=== PATIENT | female | born 1975 | race Hispanic/Latino ===

== ENCOUNTER 2021-10-12 12:59 | Emergency (ER) | payer SELFPAY ==
--- NOTE | ~2021-10-12 | CT_ITS ---
EXAMINATION: CT abdomen pelvis w con DATE: 10/12/2021 16:49 INDICATION: Right flank pain, fever. Recent urinary tract infection. TECHNIQUE: Computed tomography (CT) of the abdomen and pelvis was performed with 100 CC Omnipaque 350 intravenous contrast. Automated exposure control and iterative reconstruction technique were employe d. Exam dose: 462.47 mGy-cm total exam DLP. COMPARISON: None. FINDINGS: The lung bases are clear of infiltrate or consolidation. Normal heart size. No pericardial or pleural effusion. Small sliding hiatal hernia. The gallbladder is present. No bile duct or pancreatic duct dilatation. No hepatic, splenic, pancreatic, and adrenal or renal space-occupying mass lesion is evident. No urinary tract calculus or hydroureteronephrosis. There is moderate diffuse thickening of the urina ry bladder wall; cystitis is not excluded. Normal caliber of the abdominal aorta. No intraperitoneal or retroperitoneal or pelvic mass lesion or adenopathy or ascites. Normal appendix. There is diverticulosis of the left and right colon; no CT evidence of diverticuliti s. No bowel obstruction, bowel wall thickening, pneumatosis or intraperitoneal free air is detected. The uterus and adnexal areas are unremarkable. Small fat-containing umbilical hernia. There is a prominent fat-containing left inguinal hernia. No suspicious osteolytic or osteoblastic lesions are noted. IMPRESSION: Small sliding hiatal hernia Normal appendix Diverticulosis of left and right colon; no evidence of diverticulitis No urinary tract calculus or hydroureteronephrosis Moderate diffuse thickening of the urinary bladder wall; cystitis is not excluded Prominent fat-containing left inguinal hernia Reviewed, dictated and finalized at [facility]. Reviewed, dictated and finalized at [facility]. IMPRESSION: Small sliding hiatal hernia Normal appendix Diverticulosis of left and right colon; no evidence of diverticulitis No urinary tract calculus or hydroureteronephrosis Moderate diffuse thickening of the urinary bladder wall; cystitis is not exclud ed Prominent fat-containing left inguinal hernia
[2021-10-12 13:09] VITALS: BP 125/75; PULSE 127; RESP 16; TEMP 37.5; O2SAT 99
[2021-10-12 13:28] LABS: Basophils Absolute Auto 0.1 K/mm3 (0.0-0.1); Basophils Percent Auto 0.4 % (0.2-1.2); Eosinophils Percent Auto 0.3 % (0-4.4); Hematocrit 40.1 % (37.0-47.0); Hemoglobin 13.4 g/dL (12.0-15.0); Immature Granulocyte Absolute 0.04 K/mm3 (0.00-0.031); Immature Granulocyte Percent A 0.3 % (0-0.5); Lymphocytes Absolute Auto 0.57 K/mm3 (0.9-3.2); Lymphocytes Percent Auto 4.6 % (18.3-44.2); Mean Corpuscular HGB Conc 33.4 g/dl (32-36); Mean Corpuscular Hemoglobin 31.7 pg (26-34); Mean Corpuscular Volume 94.8 fl (80-100); Mean Platelet Volume 10.9 fl (7.4-10.4); Monocytes Absolute Auto 0.5 K/mm3 (0.1-0.6); Monocytes Percent Auto 4.1 % (2.6-8.5); Neutrophils Absolute Auto 11.1 K/mm3 (1.3-6.7); Neutrophils Percent Auto 90.3 % (45.5-73.1); Platelet Count Result 253 k/mm3 (150-375); Red Blood Count 4.23 M/mm3 (4.2-5.4); Red Cell Distribution Width 11.7 % (11.5-14.5); White Blood Count 12.3 K/mm3 (4.5-10.0)
[2021-10-12 13:39] LABS: Alanine Aminotransferase 20 U/L (6-35); Albumin Level 4.5 g/dL (3.5-5.1); Alkaline Phosphatase 89 U/L (38-126); Anion Gap 13 mmol/L (8-16); Aspartate Amino Transferase 27 U/L (14-36); Bilirubin,Total 0.7 mg/dL (0.2-1.3); Blood Urea Nitrogen 7 mg/dL (7-17); Carbon Dioxide 24 mmol/L (22-30); Chloride 99 mmol/L (98-107); Estimated CRCL calculation 74 ml/min; Estimated Glomerular Filt Rate > 60; Glucose 132 mg/dL (65-110); Lipase 53 U/L (23-300); Sodium 136 mmol/L (137-145)
[2021-10-12 13:46] LABS: Bacteria Urine Trace /hpf; Mucus Urine Rare /lpf; WBC Urine 31-50 /hpf
[2021-10-12 14:02] LABS: Appearance Urine Clear (Clear); Bilirubin Urine Negative (Negative); Blood Urine 2+ (Negative); Color Urine Yellow (Yellow); Glucose Urine UA Negative (Negative); Ketones Urine Negative (Negative); Leukocyte Esterase Ur 3+ LEU/UL (Negative); Nitrate Urine Positive (Negative); Protein Urine Negative (Negative); Specific Grav Ur 1.015 (1.001-1.035)
[2021-10-12 14:03] LABS: Add Urine Microscopic? YES
--- NOTE | 2021-10-12 14:40 | ED.ABDPAIN ---
HPI - Abdominal Pain General Chief Complaint: Abdominal Pain Stated Complaint: abd pain Time Seen by Provider: 10/12/21 14:12 History of Present Illness HPI narrative: 46-year-old female who is Indonesian-speaking only presents to the emergency room for unresolved UTI symptoms dysuria and right flank pain. History was obtained using a Indonesian speaking windows server administrator. Patient states 3 days ago she was in [place], and was had a evaluated at a clinic diagnosed with a urinary tract infection. At that time patient was started on Bactrim, Azo, and fluconazole. Returned home and was seen at another clinic earlier this morning for continued symptom Tums. Patient was told to stop taking the Bactrim and was replaced with Macrobid. Patient is reportedly having right flank pain, suprapubic pain and intermittent fevers which are controlled with Tylenol. Related Data Allergies Allergy/AdvReac Type Severity Reaction Status Date / Time No Known Allergies Allergy Verified 10/12/21 13:12 Review of Systems Review of Systems: CONSTITUTIONAL: Reports fever EYES: Denies visual changes, redness, or discharge. ENT: Denies rhinorrhea, congestion, sore throat, or otalgia. CARDIOVASCULAR: Denies chest pain, palpitations, or edema. RESPIRATORY: Denies cough or dyspnea. GASTROINTESTINAL: Denies abdominal pain, nausea, vomiting, or diarrhea. GENITOURINARY: Reports dysuria SKIN: Denies rash or itching. MUSCULOSKELETAL: Denies back pain, joint pain, or myalgia. NEUROLOGIC: Denies headache, numbness, dizziness, or weakness. PSYCHIATRIC: Denies anxiety or depression. Exam Narrative: GENERAL: Well-appearing, well-nourished, no physical limitations, and in no acute distress. HEAD: Normocephalic, atraumatic. EYES: Conjunctivae normal, PERRLA and EOMI. CHEST: Clear to auscultation. No respiratory distress. No wheezes rales or rhonchi. No tenderness. HEART: Regular rate and rhythm. No murmur heard. Normal peripheral pulses. ABDOMEN: Soft, suprapubic tenderness, nondistended, normal active bowel sounds. BACK: Right CVA tenderness EXTREMITIES: Normal range of motion. No edema. No clubbing or cyanosis SKIN: Warm, dry, no rash. No noted wounds NEURO: No focal deficits. Alert and oriented x3. MAEW. CN's II-XI intact bilaterally, normal gait PSYCH: Cooperative. Normal mood and affect. Course Vital Signs Vital signs: Vital Signs Temperature 37.5 C 10/12/21 13:09 Pulse Rate 127 H 10/12/21 13:09 Respiratory Rate 16 10/12/21 13:09 Blood Pressure 125/75 10/12/21 13:09 Pulse Oximetry 99 10/12/21 13:09 Oxygen Delivery Room Air 10/12/21 13:09 Temperature 37.3 C 10/12/21 16:06 Pulse Rate 127 H 10/12/21 13:09 Respiratory Rate 16 10/12/21 13:09 Blood Pressure 125/75 10/12/21 13:09 Pulse Oximetry 99 10/12/21 13:09 Oxygen Delivery Room Air 10/12/21 13:09 MDM - Abdominal Pain Lab Data Result diagrams: 10/12/21 13:18 10/12/21 13:18 Labs: Lab Results 10/12/21 10/12/21 10/12/21 Range/Units 13:18 13:18 13:20 WBC 12.3 H (4.5-10.0) K/mm3 RBC 4.23 (4.2-5.4) M/mm3 Hgb 13.4 (12.0-15.0) g/dL Hct 40.1 (37.0-47.0) % MCV 94.8 (80-100) fl MCH 31.7 (26-34) pg MCHC 33.4 (32-36) g/dl RDW 11.7 (11.5-14.5) % Plt Count 253 (150-375) k/mm3 MPV 10.9 H (7.4-10.4) fl Immature Gran % (Auto) 0.3 (0-0.5) % Neut % (Auto) 90.3 H (45.5-73.1) % Lymph % (Auto) 4.6 L (18.3-44.2) % Moore % (Auto) 4.1 (2.6-8.5) % Eos % (Auto) 0.3 (0-4.4) % Baso % (Auto) 0.4 (0.2-1.2) % Lymph # (Auto) 0.57 L (0.9-3.2) K/mm3 Moore # (Auto) 0.5 (0.1-0.6) K/mm3 Eos # (Auto) 0.0 (0-0.3) K/mm3 Baso # (Auto) 0.1 (0.0-0.1) K/mm3 Abs Immat Gran (auto) 0.04 H (0.00-0.031) K/mm3 Absolute Neuts (auto) 11.1 H (1.3-6.7) K/mm3 Absolute Nucleated RBC 0.0 (0.0-0.012) K/mm3 Nucleated RBC % 0.0 (0.0-0.2) % Sodium 136 L (137-145) mmol/
--- NOTE | 2021-10-12 15:12 | PC.NURSE ---
Called lab to add bedside
[2021-10-12] MEDS: KETOROLAC 30 MG/ML VIAL (*BKC) IV PUSH (15:38)
[2021-10-12] MEDS: SODIUM CHLORIDE 0.9% IV 1,000 ML 999 ML IV CONT (15:38)
[2021-10-12 16:06] VITALS: TEMP 37.3
[2021-10-12 16:15] LABS: Pregnancy On Board Control Positive; Urine Pregnancy Test Negative
== END 2021-10-12 17:52 | disposition home or self-care (01) ==
PROVIDERS: Emergency Medicine; Emergency Provider Nurse Practitioner Family; PCP Physician Assistant
DX: N39.0 Urinary tract infection, site not specified (principal); K44.9 Diaphragmatic hernia without obstruction or gangrene; K57.90 Diverticulosis of intestine, part unspecified, without perforation or abscess without bleeding; K40.90 Unilateral inguinal hernia, without obstruction or gangrene, not specified as recurrent
CPT/HCPCS: 36415; 74177; 80053; 81001; 81025; 83690; 85025; 87077; 87086; 87186; 96361; 96374; 99284; J1885; J7030; Q9967

== ENCOUNTER 2022-03-06 17:12 | Emergency (ER) | payer SELFPAY ==
[2022-03-06 17:18] VITALS: BP 132/86; PULSE 105; RESP 18; TEMP 36.8; O2SAT 100
--- NOTE | 2022-03-06 18:00 | ED.URI ---
HPI - URI/Sore Throat General Chief Complaint: Upper Respiratory Infection Stated Complaint: Sore Throat/ Ears Irritation Time Seen by Provider: 03/06/22 17:40 Source: patient, RN notes reviewed, old records reviewed and chart computer ([employer]ia [employer]) Mode of arrival: ambulatory Limitations: no limitations History of Present Illness HPI Narrative: 47-year-old female presents to the [facility] with multiple complaints. Patient reports ear pain, sore throat and soreness to the lower part of the nares, upper nose. Symptoms started Patient has concerns for diabetes and menopause. Attempted to explain to patient through chart computer that we do not do blood work that she would need to follow up with primary care provider for further evaluation and blood work. Patient states that she has a history of anxiety and is wanting diazepam. Explained to patient through chart computer that we do not prescribed controlled substances. That if she is having anxiety she needs to follow up with primary care provider. Onset (ago): day(s) (3) Related Data Home Medications Medication Instructions Recorded Confirmed clonazepam 0.5 mg tablet (Klonopin) 0.5 mg PO BID 03/06/22 03/06/22 escitalopram oxalate 5 mg tablet 5 mg PO DAILY 03/06/22 03/06/22 (Lexapro) Allergies Allergy/AdvReac Type Severity Reaction Status Date / Time No Known Allergies Allergy Verified 10/12/21 13:12 Review of Systems Review of Systems: All systems reviewed & are unremarkable except as noted in HPI and below Constitutional: Constitutional: Reports no additional constitutional complaints Eyes: Eyes: Reports no additional eye complaints ENT: Reports as per HPI, Reports otalgia and Reports sore throat Cardiovascular: Cardiovascular: Reports no additional cardiovascular complaints, Denies chest pain and Denies dyspnea Respiratory: Respiratory: Reports no additional respiratory complaints, Denies chest congestion, Denies cough and Denies dyspnea Gastrointestinal: Gastrointestinal: Reports no additional gastrointestinal complaints, Denies abdominal pain, Denies nausea and Denies vomiting Musculoskeletal: Musculoskeletal: Reports no additional musculoskeletal complaints Integumentary/Breasts: Skin/Breast: Reports system reviewed and no additional complaints, except as docu Neurologic: Reports system reviewed and no additional complaints, except as documented Psychiatric: Psychiatric: Reports no additional psychiatric complaints Allergic/Immunologic: Allergic/Immunologic: Reports no additional allergic/immunologic complaints PMFSH Past Medical History Medical History (Updated 03/06/22 @ 18:16 by Rahel Storey APRN) Anxiety Comments At the time of my signature, I reviewed and agree with the nursing past medical, surgical, social, and family history. There is no relevant family history pertinent to the patient complaint. Exam Const: General: cooperative, healthy appearing, comfortable, no acute distress, well developed, alert and well nourished Nutritional Appearance: well nourished and obese Orientation/consciousness: patient oriented x3 Limitations: no limitations HENMT: Head: normal to inspection Ears: hearing grossly normal bilaterally, external ears normal and TM abnormal with fluid behind the TM bilateral Face/Nose/Sinus: Normal external nose present, Normal nares present, Normal nasal mucous membranes and turbinates present and normal facial exam Face and sinus: normal facial exam Mouth: Yes Normal oral and palatal mucosa present, Yes lip normal and Yes moist mucous membranes Throat: posterior oropharynx normal, uvula midline and postnasal drainage Eyes: General: appearance normal, both eyes and all related structures Alignment and Position: alignment normal Periorbital: periorbital findings normal Conjunctivae: conjunctivae normal Pupils: Equal, round and reactive pupils present EOM: EOMs intact bilaterally Neck: Neck: normal visual
== END 2022-03-06 18:21 | disposition home or self-care (01) ==
PROVIDERS: Emergency Provider Nurse Practitioner; PCP Physician Assistant
DX: R09.82 Postnasal drip (principal); J06.9 Acute upper respiratory infection, unspecified; Z20.822 Contact with and (suspected) exposure to COVID-19; F41.9 Anxiety disorder, unspecified
CPT/HCPCS: 87426; 87804; 99213; C9803; G0463

== ENCOUNTER 2022-04-02 11:29 | Emergency (ER) | payer MEDICAID, SELFPAY ==
[2022-04-02 11:41] VITALS: BP 118/67; PULSE 92; RESP 18; TEMP 36.8; O2SAT 100
--- NOTE | 2022-04-02 11:53 | ED.GENADULT ---
HPI - General Adult General Chief complaint: Upper Respiratory Infection Stated complaint: Right Ear Pain/ Headache Time Seen by Provider: 04/02/22 11:50 Source: patient and RN notes reviewed Mode of arrival: ambulatory Limitations: no limitations History of Present Illness HPI narrative: 47-year-old female with a history of hypertension presenting for multiple complaints. She endorses right-sided head pain, right ear pain radiating to the right neck and right arm. Also reports runny nose, chills. Onset 3 days. She endorses she has had similar symptoms in the past and has improved with antibiotic. Denies cough or shortness of breath, wheezing, fevers or chills. She has taken ibuprofen which helps temporarily. Patient also reports possible UTI, states she feels ?hot? with urination. She states she called her primary care provider and was advised to drink tea. She currently denies abdominal pain, nausea, vomiting diarrhea. Patient is Yemeni-speaking and therefore plant anatomist services were utilized. Related Data Home Medications Medication Instructions Recorded Confirmed escitalopram oxalate 5 mg tablet 5 mg PO DAILY 03/06/22 04/02/22 (Lexapro) trazodone 50 mg tablet 50 mg PO HS 04/02/22 04/02/22 Allergies Allergy/AdvReac Type Severity Reaction Status Date / Time No Known Allergies Allergy Verified 04/02/22 11:39 Review of Systems Review of Systems: Per [facility] Past Medical History Medical History Anxiety Exam Narrative: GENERAL: well-appearing EYES: conjunctivae clear ENT: Mucous membranes moist. TM pearly snyder with normal light reflex bilaterally; no tragal tenderness. Right external ear tenderness reported with palpation. Oropharynx erythematous without lesions or exudate, no drooling, no hoarseness, no trismus, uvula midline. NECK: Supple. No lymphadenopathy CHEST: Clear to auscultation, breath sounds equal. Right anterior chest tenderness reported with palpation. HEART: Regular rate and rhythm. No murmur heard. SKIN: Warm, dry, no rash. MUSC: RUE skin tenderness reported with palpation, no rash or bruising; RUE full ROM. NEURO: Alert and oriented x3. PSYCH: Normal mood and affect Course Course Emergency Course: Patient is aware of diagnosis, understands and agrees to treatment plan. Anticipatory guidance given. Patient agrees to follow-up as directed and is aware of reasons to seek care at the emergency department. Portions of this record may have been created with voice recognition software Level of Care: Express Care Visit Vital Signs Vital signs: Vital Signs Temperature 98.2 F 04/02/22 11:41 Pulse Rate 92 04/02/22 11:41 Respiratory Rate 18 04/02/22 11:41 Blood Pressure 118/67 04/02/22 11:41 Pulse Oximetry 100 04/02/22 11:41 Oxygen Delivery Room Air 04/02/22 11:41 Temperature 98.2 F 04/02/22 11:41 Pulse Rate 92 04/02/22 11:41 Respiratory Rate 18 04/02/22 11:41 Blood Pressure 118/67 04/02/22 11:41 Pulse Oximetry 100 04/02/22 11:41 Oxygen Delivery Room Air 04/02/22 11:41 reviewed Medical Decision Making MDM Narrative Medical decision making narrative: Result of urine reviewed with pt. No AOM at this time, patient is advised through the use of the telecommunications support, no indication for antibiotic for the right side of body. Advised to f/u with pcp as she stated this is a recurrent complaint. Advised supportive measures and signs/symptoms to go to the ER. Pt is appropriate for outpt treatment and f/u. Differential Diagnosis Differential Diagnosis: Influenza, covid, sinusitis, OM, strep pharyngitis, URI, shingles, uti Vital Signs Vital Signs: Vital Signs Temperature 98.2 F 04/02/22 11:41 Pulse Rate 92 04/02/22 11:41 Respiratory Rate 18 04/02/22 11:41 Blood Pressure 118/67 04/02/22 11:41 Pulse Oximetry 100 04/02/22 11:41 Oxygen Delivery Room Air 04/02/22 11:41
== END 2022-04-02 12:52 | disposition home or self-care (01) ==
PROVIDERS: Emergency Provider Nurse Practitioner Family; PCP Physician Assistant
DX: H92.01 Otalgia, right ear (principal); R30.0 Dysuria; I10 Essential (primary) hypertension; F41.9 Anxiety disorder, unspecified
CPT/HCPCS: 81003; 87077; 87086; 87186; 99213; G0463